=== PATIENT | female | born 1940 | race Caucasian/White ===

== ENCOUNTER 2017-06-10 16:11 | Inpatient (IN) | payer MEDICARE ==
[~2017-06-10] VITALS: Ht 154.9 cm; Wt 51.7 kg
--- NOTE | ~2017-06-10 | DS ---
[place], [place] DISCHARGE SUMMARY [id number] UN[facility] #: [id number] ROOM: 315 DOCTOR: TEDDY JOHNSON MD BIRTHDATE: [birth year] DOS: 06/16/2017 CHIEF COMPLAINT: "I need to get out of the hospital because I am getting today or next week." HISTORY OF PRESENT ILLNESS: This is a 76-year-old white female who is well known to me due to her stay at [facility] in [place], [place]. Apparently, the patient has a lengthy history of schizophrenia as well as Alzheimer dementia. She has been decompensating gradually over the last 4-6 weeks prior to this admission with an increase in her psychosis. The patient has been fixated on the belief that she is getting to a gentleman by the name of Mickey. She believes that Mickey works at a local [employer] and in fact calls there so much the library has threatened to press charges against the facility. Attempts to redirect have only led to her becoming increasingly verbally and physically aggressive towards the staff at the facility. She normally is very docile and compliant. She is becoming increasingly more agitated and been episodically noncompliant with her medicine. She is admitted now to rule out organic factors, to stabilize on medication with the ultimate plan to return to the least restrictive environment when stable. PAST MEDICAL HISTORY: Remarkable for osteoarthritis, asthma, chronic back pain, COPD, diabetes, hyperlipidemia, hypertension, migraines, osteopenia, rheumatoid arthritis, schizophrenia and a history of TIAs. SUMMARY OF HOSPITAL COURSE: The patient was admitted to the unit where she had her Seroquel discontinued in lieu of Invega 3 mg a day. Additionally, her Exelon capsules, which were taken 3 mg twice daily, was changed to Exelon patch 9.5 mg a day. She maintained on her Namenda 10 mg twice daily. Invega was ultimately increased from 3-6 mg a day with excellent results. Shortly after doing this, her psychotic symptoms abated. She no longer talked about getting . She no longer talked about Mickey. She was very fixated now on getting better and being able to return back to [place]. Exelon was gradually increased to its maximum dose of 13.3 mg a day. Staff did note as did I a mild upper extremity tremor and also some mild tremor of her upper lip. Vitamin E was utilized to see if it would help reverse any potential tardive and Cogentin 0.5 mg twice daily was utilized for the tremor. Both did seem to impact positively on these symptoms. She had improved readily enough to return back to [facility] while I will follow her. MENTAL STATUS AT DISCHARGE: The patient was alert and oriented to person, place, select others, but not totally to time. Mood was euthymic. Affect appropriate. There are no symptoms of sher or psychosis. Short term memory had gaps. FINAL DIAGNOSES: Schizoaffective disorder and Alzheimer dementia. PLAN: All of her prescriptions have been printed and will be sent with her. I will follow her upon her return to [facility]. [place], [place] DISCHARGE SUMMARY NAME: PARTH JASON UNIT #: [id number] ROOM: [facility] DOCTOR: TEDDY JOHNSON MD BIRTHDATE: [birth year] TEDDY JOHNSON MD CM:DISCHDAMIR [phone] TEDDY JOHNSON MD 06/16/17 1100 interface
--- NOTE | ~2017-06-10 | PR ---
[place], [place] PROGRESS NOTE NAME: PARTH JASON UNIT #: [id number] ROOM: 315 DOCTOR: TEDDY DEXTER MD BIRTHDATE: [birth year] DOS: 06/14/2017 CHIEF COMPLAINT: "Oh, Dr. Dexter, it's so nice to see you." SUMMARY OF THE VISIT: The patient was interviewed in her room, then later we walked her to the dining area to help her sit down. She engaged readily in conversation. She reports that she is feeling much better and is anxious to be able to go back to [facility]. She states that she is sleeping well, eating well and denies any side effects from the medication. She did not at any point in time ever bring up her getting this week or next week nor did she bring up being to Mickey. She does seem to be tolerating the current medication regimen well. MENTAL STATUS: She is alert and oriented, which has some time gaps. Mood does seem to be strongly trending towards euthymia. Affect is much more appropriate. There are no symptoms suggestive of sher or hypomania. There are no auditory or visual hallucinations noted. Short term memory has gaps, otherwise she is intact. PLAN: Maintain her current psychotropic regimen. Her urinalysis grew out E. coli. I will defer treatment of this to the hospitalist. We will engage her in individual and sher milieu activity, returning back to [place] when stable. TEDDY DEXTER MD CM:PNTRANS [id number] TEDDY DEXTER MD 06/14/17 1241 interface
--- NOTE | ~2017-06-10 | PR ---
[place], [place] PROGRESS NOTE NAME: PARTH JASON UNIT #: [id number] ROOM: 315 DOCTOR: TEDDY JOHNSON MD BIRTHDATE: [birth year] DOS: 06/15/2017 CHIEF COMPLAINT: "I am feeling better, thank you, do I get to go home soon?" SUMMARY OF THE VISIT: The patient was interviewed in the dining area where she was sitting eating breakfast. She engaged readily in conversation, reporting that she is sleeping well, eating well and is feeling better. She did not speak a single word about an upcoming wedding, nor did she talk about Mickey. She is much more pleasant and cooperative. I do note some mild movement of her upper lip. MENTAL STATUS: She is alert and oriented with some time gaps. Mood does seem to be more euthymic. Affect is more appropriate. There are no symptoms of hypomania or sher. There are no overt auditory or visual hallucinations. No delusions. No paranoia. Memory has mild gaps, but otherwise she is intact. PLAN: I will maintain her current psychotropic regimen. I will go ahead and add vitamin E 400 International Units to attempt to reverse the tardive dyskinesia. We will monitor, support and plan to discharge to the least restrictive environment. TEDDY JOHNSON MD CM:PNTRANS [id number] TEDDY JOHNSON MD 06/15/17 2342 interface
--- NOTE | ~2017-06-10 | PR ---
[place], [place] PROGRESS NOTE NAME: PARTH JASON UNIT #: [id number] ROOM: 315 DOCTOR: TEDDY JOHNSON MD BIRTHDATE: [birth year] DOS: 06/12/2017 CHIEF COMPLAINT: "Oh is at breakfast time, I am still tired." SUMMARY OF THE VISIT: The patient was interviewed as she rested in bed. She readily and engaged in conversation. She did appear somewhat sleepy. She did request that she could sleep some more before breakfast was coming because it was so early. Of note, the patient did not mention anything about the contacting and nurses report that this seemed to be somewhat less as the day went on yesterday. She remains pleasantly confused for the most part. MENTAL STATUS: She is alert and oriented to person, unclear place, certainly not time. Mood does seem to be fairly euthymic. Affect is within normal limits. Her speech rate and pattern is rather sparse and there is processing difficulty. She remains confused. PLAN: At this point, I will maximize out her Exelon patch at 13.3 mg a day, being augmented with Namenda. Maintain the current dose of the Invega at this point. Engage in individual and sher milieu activity, returning back to [facility] when stable. TEDDY JOHNSON MD CM:PNTRANS [phone] TEDDY JOHNSON MD 06/12/17 0857 interface
--- NOTE | ~2017-06-10 | PR ---
[place], [place] PROGRESS NOTE NAME: PARTH JASON UNIT #: [id number] ROOM: 315 DOCTOR: TEDDY DEXTER MD BIRTHDATE: [birth year] DOS: 06/13/2017 CHIEF COMPLAINT: "Oh Hi Dr. Dexter, when do I get to go home." SUMMARY OF THE VISIT: The patient was interviewed as she was resting quietly in bed. She engaged readily in conversation, looked me in the eye and had a relatively normal conversation. When I asked if there is anything at all that we can do to help her with, she did not bring up the need to call Abdelrahman or call anybody, instead she focused on here now and told me that she is feeling better. She is sleeping well, eating well and denies any medication side effects. She seemed much more goal directed in her thoughts. MENTAL STATUS: She is alert and oriented with some time gaps. Mood does seem to be trending towards euthymia and affect is much more appropriate. There are no symptoms of sher or hypomania. There are no overt auditory or visual hallucinations. No delusions were voiced. Short term memory continues to have gaps. PLAN: I will maintain her current psychotropic regimen. Of note, the patient does have a positive UTI which could have been some of the cause of her psychotic exacerbation. Otherwise, I do not think she is responding to the much more potent antipsychotic Invega than the lower potency Seroquel. We will monitor for risk, benefit and return then to [place] when stable. TEDDY DEXTER MD CM:PNTRANS [id number] TEDDY DEXTER MD 06/13/17 1239 interface
--- NOTE | ~2017-06-10 | WRIGHTHP ---
[place], [place] PATIENT HISTORY AND PHYSICAL EXAM NAME: PARTH JASON UNIT #: [id number] ROOM: 315 DOCTOR: TEDDY JOHNSON MD BIRTHDATE: [birth year] DOS: 06/11/2017 CHIEF COMPLAINT: "I need to get out of the hospital because I'm getting today and next week." HISTORY OF PRESENT ILLNESS: This is a 76-year-old white female who is well known to me due to her stay at [facility] in [place], [place]. The patient has a lengthy history of schizophrenia as well as Alzheimer's dementia. She has been decompensating over the last 4-6 weeks with an increase in her psychotic symptomatology. The patient has been fixated on the belief that she is marrying a gentleman by the name of Mickey, Mickey has no last name and Mickey apparently works in the library. She has been calling the library excessively to the point where the library staff has threatened legal action but based on her perseverative calls, attempts to redirect her in detention have only been met with her becoming verbally and physically aggressive with them, which is in sanchez contrast to her normal docile behavior. The patient is becoming increasingly physically combative irrespective of this delusion and has been very resistive to her care and has been episodically noncompliant at times with her medication. She is admitted now to rule out organic factors to attempt to stabilize on medication while engaging in individual and sher milieu activity. PAST MEDICAL HISTORY: Remarkable for osteoarthritis, asthma, chronic back pain, COPD, diabetes, a history of TIA, hyperlipidemia, hypertension, migraines, osteopenia, rheumatoid arthritis and schizophrenia. MENTAL STATUS: The patient is alert and oriented to person and place. She is certainly not oriented to time. Despite having worked with the patient for many, many years, she did not appear to recognize me this morning. She is very fixated on Mickey and very fixated on leaving the hospital. Mood does seem to be somewhat depressed, and she is very anxious and fretful. She is grossly delusional. She does have some processing difficulty and does not always answer questions appropriately. Short-term memory has gaps. PLAN: The patient did receive Invega 3 mg oral upon admission and tolerated it well. I will increase her Invega dose from 3-6 mg in the morning. I will also change her Exelon capsules from 3 mg twice daily to an Exelon patch 9.5 mg a day and plan to increase this to 13.3 mg a day to maximize potential benefit. We will continue to engage in individual and sher milieu activity with the ultimate plan to return to [facility] when psychiatrically stable. [place], [place] PATIENT HISTORY AND PHYSICAL EXAM NAME: PARTH JASON UNIT #: [id number] ROOM: [facility] DOCTOR: TEDDY JOHNSON MD BIRTHDATE: [birth year] TEDDY JOHNSON MD CM:HISPHYS:PATIENT HISTORY AND PHYSICAL EXAMINATION [phone] TEDDY JOHNSON MD 06/11/17 1053 interface
[~2017-06-10 16:11] MED LIST: ACETAMINOPHEN325 M2 PO; ANTI-DIARRHEAL2 MG PO; ASPIRIN LOW DOS81 MG PO; BACID CAPLET1 EACH PO; BUTALB-ACETAMI1 EACH PO; CRESTOR5 MG PO; LACTAID FAS9000 UNIT PO; MELATONIN10 M4 PO; METFORMIN500 MG PO; MIRTAZAPINE15 M2 PO; NAMENDA10 MG PO; NORVASC5 MG PO; PRINIVIL10 MG PO; PROAIR HFA8.5 GM INH; RIVASTIGMINE TAR3 M1 PO; SEROQUEL100 MG PO; TRAMADOL HCL50 MG PO; VITAMIN D50000 UNIT PO
[2017-06-10 16:25] VITALS: BP 100/60
--- NOTE | 2017-06-10 16:43 | NUR ---
PT WAS OBSERVED TO REMOVE THE TOILET HAT FROM TOILET, URINATE IN TOILET, REPLACE THE HAT THEN REPORT TO ME THAT SHE WAS UNABLE TO URINATE. PT REFUSES A CATH BE PLACED FOR URINE SPECIMEN. PROVIDER MADE AWARE, NO NEW ORDERS.
[2017-06-10 16:54] LABS: BASO % 0.3 % (0.0-1.0); HEMATOCRIT 42.4 % (37.0-47.0); HEMOGLOBIN 13.4 g/dl (12.0-16.0); LYMPH # 1.3 10*3/uL (1.3-4.4); LYMPH % 22.3 % (27.0-41.0); MEAN CELL VOLUME 100.2 fl (81.0-99.0); MEAN CORPUSCULAR HGB 31.7 pg (27.0-31.0); MEAN CORPUSCULAR HGB CONC 31.6 g/dl (33.0-37.0); MEAN PLATELET VOLUME 9.7 fl (9.6-12.3); MONO # 0.6 10*3/uL (0.1-1.0); MONO % 9.6 % (3.0-9.0); NEUT # 3.9 10*3/uL (2.3-7.9); NEUT % 67.3 % (47.0-73.0); PLATELET COUNT AUTOMATED 215 10*3/uL (130-400); RED BLOOD COUNT 4.23 10*6/uL (4.10-5.10); WHITE BLOOD COUNT 5.8 10*3/uL (4.8-10.8)
[2017-06-10 17:11] LABS: ALBUMIN 3.5 gm/dl (3.1-4.5); ALKALINE PHOSPHATASE 132 U/L (45-117); BUN 22 mg/dl (7-24); CHLORIDE 112 mmol/L (98-107); CREATININE 1.29 mg/dL (0.55-1.02); POTASSIUM 4.3 mmol/L (3.5-5.1); SGOT/AST 14 IU/L (3-35); SGPT/ALT 15 U/L (12-78); SODIUM 144 mmol/L (136-145); TOTAL PROTEIN 7.1 gm/dL (6.4-8.2)
[2017-06-10 17:16] LABS: ETHYL ALCOHOL < 3.0 mg/dl (<3)
[2017-06-10 17:21] LABS: ACETAMINOPHEN (TYLENOL) < 2.0 ug/ml (10-30)
--- NOTE | 2017-06-10 17:25 | NUR ---
PT HAS ASKED ME SEVERAL TIMES TO REACH HER DAUGHTER SHARON BY PHONE AT [phone] BUT EACH TIME, THERE IS NO ANSWER AND THERE IS NOANSWERING MACHINE. PT INFORMED OF THIS EACH TIME. PT IS CONFUSED TO LOCATION AND TIME OF DAY AND STATES "I'M NOT SUPOSSED TO BE ADMITTED HERE....PLUS, I DON'T HAVE ANY INSURANCE". ADMISSION TO [facility] PENDING.
[2017-06-10 18:00] VITALS: BP 134/85
--- NOTE | 2017-06-10 18:00 | NUR ---
ERENPARTH Kaye a 76 year old F admitted via wheel chair from the EMERGENCY ROOM as a emergency 72 hr. hold admission. Arrived on unit at 1800. ALLERGIES: SULFA, PCN. Vital signs are: 97.6-100-18 134/85. PT UNABLE AND UNWILLING TO SIGN ADMISSION PAPERWORK. Admitted under the services of Dr. ELIZABETH LOWRYTEDDY. A search was conducted and hazardous articles were removed. Client was oriented to the unit. RONDA ARRIAGA
--- NOTE | 2017-06-10 19:07 | NUR ---
CALLED HOSPITALIST CELL NUMBER 1, DR.HARSHAW PATINO, STATES TO PUT NEW CONSULT UNDER AND HE WOULD ACCEPT VERBAL CONSULT, UPDATED AND MADE AWARE OF CONSULT AT THIS TIME.
[2017-06-10 20:00] VITALS: BP 128/71
[2017-06-10 20:37] VITALS: BP 128/71
--- NOTE | 2017-06-10 21:15 | NUR ---
INTERACTIVE WHEN APPROACHED. VERY RESERVED AND NERVOUS. EMOTIONAL SUPPORT AND REASSURANCE PROVIDED. BROUGHT TO [facility] WHERE SHE FINALLY AGREED TO HAVE SNACK. MEDICATION COMPLIANT. GAIT STEADY
--- NOTE | 2017-06-11 05:24 | NUR ---
SLEPT INTERMITTENTLY BUT RESTED QUIET. MOVED SELF AROUND IN BED. P- DELUSIONAL I--TEACH REALITY VS DELUSION. ORIENT TO DATE AND PERSON,..TEACH COPING SKILLS P- NO DELUSIONS ABOUT FRIEND MARRYING HER, ORIENTED TO DATE AND TIME 24 HR chart check completed.
[2017-06-11 07:48] LABS: CHOLESTEROL 141 mg/dL (<200); TRIGLYCERIDES 139 mg/dl (<150); VLDL CHOLESTEROL 28 mg/dL (6-40)
[2017-06-11 07:49] LABS: HDL CHOLESTEROL 76 mg/dl (40-60); LDL CHOLESTEROL 37 mg/dL (9-159)
[2017-06-11 08:01] VITALS: BP 120/43
[2017-06-11 08:29] LABS: VITAMIN D, 25-HYDROXY 74.2 ng/mL (30-100)
--- NOTE | 2017-06-11 08:57 | NUR ---
MARINA, NURSE PLUMBING INSTRUCTOR FROM [facility] CALLED TO CHECK IN ON PT. UPDATE GIVEN. PER MARINA, PT USUALLY BEGINS AROUND 11AM REQUESTING TO CALL [phone] WHICH IS THE [employer] THE PT THINKS HER ALLEGED TASHA WORKS AT, ALLEGED TASHA IS . PT IS NO LONGER ALLOWED TO CALL THE [employer] D/T MAKING MULTIPLE CALLS AND ARGUING WITH STAFF THERE.
--- NOTE | 2017-06-11 09:52 | NUR ---
physical therpay PAtient evaluated on 3, full evaluation to follow. PAtient is 100 % (i) all mobility, d/c PT after evalaution. Thank you for this referral. Barbara Jean,PT
--- NOTE | 2017-06-11 13:26 | NUR ---
Exercise/Independent activity Patient did not attend group this morning,Patient refused.Encouraged patient to attend and educated her on benefits of attending groups and patient stated she did not feel well and refused again
--- NOTE | 2017-06-11 13:28 | NUR ---
case management called [facility] for authorization, per Bam, inpatient stay approved for 5 days, nr 06/14/17, reference number is [id number]
--- NOTE | 2017-06-11 13:39 | NUR ---
Occupational Therapy evaluation completed this date on 3 with full eval to follow. Precaution includes 3N prec, recent delusions, low complexity level 50331. Recommend no further OT at this time. Recommend d/c to shelter upon d/c. Thank you for this referral. Lora Howard OTR/L
--- NOTE | 2017-06-11 14:29 | NUR ---
PT ALERT TO PERSON ONLY. PT MED COMPLIANT WITHOUT DIFFICULTY. PT IS ISOLATIVE TO ROOM, REFUSING TO COME TO GROUP, ONLY COMING OUT FOR MEALS. NO HALLUCINATIONS NOTED. PT DELUSIONAL THINKING SHE IS MARRYING A MAN NAMED "PATRICIA", WHO IS . PT SPOKE WITH REGARDING THIS MATTER BUT VOICED NO DELUSIONS TO THIS NURSE. PT AMBULATORY THROUGHOUT UNIT, GAIT STEADY. PT CONTINENT OF BOWEL AND BLADDER. PLAN IS TO ENCOURAGE PT TO PARTICIPATE IN GROUP/ACTIVITIES, MONITOR BEAHVIORS ON Q15 M IN SAFETY CHECKS.
--- NOTE | 2017-06-11 15:35 | NUR ---
PT DELUSIONAL ASKING THIS NURSE TO CALL HER TASHA, WHO SHE IS MARRYING LATER THIS MONTH. ATTEMPTED TO PRESENT REALITY TO PT WITHOUT SUCCESS.
--- NOTE | 2017-06-11 15:37 | NUR ---
Decorating pumpkin this helped patients with thinking, concentration, solializing, and self esteem. Patient refused to join group. I engouraged patient and educated patient of the benefits of attend group. Patient refused say she was sick, she was waiting on a pill for her headache, and several other reasons she couldnt attend
--- NOTE | 2017-06-11 17:15 | NUR ---
PT REFUSED TO ATTEND GROUP.
--- NOTE | 2017-06-11 17:34 | NUR ---
TREATMENT TEAM WAS ANDREEA WITHTHE FOLLOWOING: DR. JOHNSON, RN.AT.SW. PT PAPITOULD BE ABLE TO RETURN TO [facility].
--- NOTE | 2017-06-11 18:36 | NUR ---
PT C/O HEADACHE 5/10, TYLENOL 650 MG PO PRN GIVEN.
--- NOTE | 2017-06-11 19:29 | NUR ---
PT REFUSING TO ALLOW NURSING STAFF TO PERFORM STRAIGHT CATH FOR URINE COLLECTION. EXPLAINED THE PURPOSE/IMPORTANCE OF COLLECTING SAMPLE. PT AGREED TO LET STAFF KNOW WHEN SHE NEEDED TO URINATE AND HOW TO USE THE HAT COLLECTION DEVICE. CONTINUE TO MONITOR FOR CHANGES IN BEHAVIOR.
[2017-06-11 20:06] VITALS: BP 120/74
[2017-06-11 21:00] LABS: BILIRUBIN 1+ (NEGATIVE); BLOOD NEGATIVE (NEGATIVE); CLARITY CLOUDY (CLEAR); COLOR YELLOW (YELLOW); GLUCOSE NEGATIVE (NEGATIVE); KETONE TRACE (NEGATIVE); LEUKO ESTERASE 2+ (NEGATIVE); NITRITE NEGATIVE (NEGATIVE); PH 5.5 (5.0-9.0); SPECIFIC GRAVITY 1.025 (1.005-1.030); UROBILINOGEN 0.2 E.U./dl (0.2-1.0)
[2017-06-11 21:07] LABS: BACTERIA 4+; WBC 41-50 wbc/hpf (0-5)
[2017-06-11 21:11] LABS: URINE AMPHETAMINES < 1000 (1000ng/ml); URINE BARBITURATES < 200 (200ng/ml); URINE BENZODIAZEPINES < 200 (200ng/ml); URINE CANNABINOIDS (THC) < 50 (50ng/ml); URINE COCAINE < 300 (300ng/ml); URINE METHADONE < 300 (300ng/ml); URINE OPIATES < 300 (300ng/ml); URINE PHENCYCLIDINE < 25 (25ng/ml)
--- NOTE | 2017-06-11 21:37 | NUR ---
UPDATED REGARDING PATIENT'S ABNORMAL URINE RESULTS. VERBALIZED UNDERSTANDING, NO NEW ORDERS RECEIVED AT THIS TIME.
--- NOTE | 2017-06-12 01:44 | NUR ---
24HR CHART CHECK COMPLETE
--- NOTE | 2017-06-12 06:14 | NUR ---
PT SLEPT >8 HRS, WITH ONE INTERRUPTION TO RECEIVE MEDICATION. PT PLEASANTLY CONFUSED. ORIENTED TO PERSON ONLY. PT DID NOT MENTION "PATRICIA" DURING THIS SHIFT. PT COMPLIANT WITH MEDICATIONS. ISOLATIVE TO ROOM UNLESS EATING. ENCOURAGED PT TO ATTEND GROUP SESSIONS AND TO VERBALIZE ANY FEELINGS OF EMOTIONAL DISTRESS TO STAFF. PT VERBALIZED UNDERSTANDING. REFER TO FLOWSHEET FOR ADDITIONAL INFO.
[2017-06-12 09:04] VITALS: BP 117/81
--- NOTE | 2017-06-12 13:37 | NUR ---
PATIENT IS ALERT AND ORIENTED TO SELF. ST/LT MEMORY DEFICITS NOTED. MOOD IS STABLE WITH FLAT AFFECT. NO HALLUCINATIONS NOTED THIS SHIFT. CALM AND COOPERATIVE WITH STAFF. APPEARS TO BE PROCESSING SLOWLY UPON INTERACTIONS WITH STAFF. REQUESTED TO CALL "PATRICIA" X1 THUS FAR, REALITY PRESENTED WITH NO EFFECT, PT DOES NOT VERBALIZE UNDERSTANDING, 1:1 COMPLETED WITH MINIMAL EFFECT. NAPS INTERMITTENTLY THROUGHOUGHT THE DAY. LIMITED INTERACTIONS WITH PEERS. ISOLATIVE TO ROOM DURING THE DAY. MEDICATION COMPLIANT WITHOUT DIFFICULTY. MOUTH TREMOR CONTINUES, NO DISTRESS NOTED. APPETITE GOOD FOR MEALS. PATIENT COMES TO DINNING ROOM TO EAT THEN GOES BACK TO ROOM DESPITE ENCOURAGEMENT TO STAY OUT IN [place] WITH NO EFFECT. TAKING FLUIDS WELL. RESPIRATIONS EASY AND EVEN. WILL CONTINUE TO ENCOURAGE PT TO ATTEND/PARTICIPATE IN GROUP/ACTIVITIES. WILL CONTINUE WITH Q15 MIN SAFETY CHECKS PER ORDERS.
--- NOTE | 2017-06-12 14:19 | NUR ---
Shift chart check completed.
[2017-06-12 20:16] VITALS: BP 141/76
--- NOTE | 2017-06-13 00:27 | NUR ---
24HR CHART CHECKS COMPLETE
--- NOTE | 2017-06-13 06:26 | NUR ---
PT ALERT OX3 ISOLATIVE TO ROOM, MED COMPLIANT WITH OUT DIFFICULTY. MUCH COAXING TO ATTEND HS GROUP AND SNACK. PLESANT AND COOPERATIVE WITH ALL ASPECTS OF CARE. SLEPT 8 HOURS WITH OUT ONLY INTURRUPTED BY PEERS OUT BURSTS
[2017-06-13 07:56] VITALS: BP 118/84
--- NOTE | 2017-06-13 11:01 | NUR ---
ON UNIT AND MADE AWARE OF URINE CULTURE RESULTS. NNO AT THIS TIME.
--- NOTE | 2017-06-13 17:19 | NUR ---
PARTH IS ALERT AND ORIENTED TO SELF AND PLACE. ST/LT MEMORY DEFICITS WITH PERIODS OF CONFUSION NOTED. MOOD IS STABLE AND EUTHYMIC. NO HALLUCINATIONS, DELUSIONS, OR BEHAVIORS NOTED. NO DELUSIONS ABOUT "PATRICIA" AND NO PHONE CALL REQUEST THIS SHIFT. ISOLATIVE TO ROOM MOST OF THE SHIFT DESPITE ENCOURAGEMENT FROM STAFF TO COME OUT TO [place] AND INTERACT WITH PEERS. CALM AND COOPERATIVE. SLOW TO PROCESS. MEDICATION COMPLIANT WITHOUT DIFFICULTY. APPETITE GOOD FOR MEALS, TAKING FLUIDS WELL. RESPIRATIONS EASY AND EVEN. NO ACUTE DISTRESS NOTED.
--- NOTE | 2017-06-13 17:34 | NUR ---
Shift chart check completed.
[2017-06-13 20:00] VITALS: BP 139/78
--- NOTE | 2017-06-13 23:42 | NUR ---
24 HR chart check completed.
--- NOTE | 2017-06-14 06:14 | NUR ---
PT PLESANT AND COOPERATIVE WITH MEDICATIONS AND ALL ASPECTS OF CARE. GREAT REPORT WITH ROOM MATE DURING HS SNACK AND GROUP. PERIODS OF CONFUSION NO AGRESSION OR AGITATION NOTED. NO REQUESTS TO CALL STARR GOMEZ. SLEPT 8 HOURS WITH OUT INTURRUPTION. CONTINUE PLAN OF CARE
[2017-06-14 08:06] VITALS: BP 134/78
--- NOTE | 2017-06-14 11:25 | NUR ---
Exercise/Trivia Exercise helps with circulation,mobility,and staying active,trivia helps with memory, concentration.thinking and socialization Patient refused to join group this morning, this staff member encouraged and encouraged patient to attend group. Patient still refuses. THis staff will attempt again this afternoon.
--- NOTE | 2017-06-14 14:16 | NUR ---
PATIENT IS ALERT AND VERBAL, ABLE TO MAKE NEEDS AND WANTS KNOWN TO STAFF. AFFECT IS BRIGHTER AND MORE APPROPRIATE. MOOD IS STABLE AND EUTHYMIC. CONTINUES TO ISOLATE TO ROOM DESPITE ENCOURAGEMENT FROM STAFF THROUGHOUT THE SHIFT. REPORTS SHE HAS BONDED WITH ROOM MATE AND IS SAD THAT ROOM MATHEW IS BEING DISCHARGED TODAY. EMOTIONAL SUPPORT PROVIDED WITH GOOD EFFECT. MEDICATION COMPLIANT WITHOUT DIFFICULTY. PROMPTING REQUIRED FOR HYGIENE. APPETITE GOOD AND TAKING FLUIDS WELL. LIMITED PEER INTERACTIONS WITH EXCEPTION OF ROOM MATE. SLOW TO PROCESS DURING ONE ON ONE INTERACTIONS WITH PATIENT. NO HALLUCINATIONS OR DELUSIONS OR BEHAVIORS NOTED. DENIES ANY SI/HI. RESPIRATIONS EASY AND EVEN. NO ACUTE DISTRESS NOTED. WILL CONTINUE WITH Q15 MIN CHECK PER OBSERVATION ORDERS. WILL CONTINUE TO ENCOURAGE PATIENT TO ATTEND AND PARTICIPATE IN GROUP THERAPY.
--- NOTE | 2017-06-14 14:29 | NUR ---
AT BEDSIDE TO ASSESS PATIENT THIS AFTERNOON AND MADE AWARE OF ECOLI GROWTH IN URINE CULTURE WITH NNO AT THIS TIME.
--- NOTE | 2017-06-14 15:14 | NUR ---
TREATMENT TEAM WAS HLED WITH THE FOLLWOING: DR. JOHNSON, YARD BRAKEMAN. RNs, SWs, AT, AND DIRECTOR. DR. JOHNSON FEELS PT CAN RETURN TO [facility]. PENDING DISCHARGE FOR 06/16.
[2017-06-14 19:55] VITALS: BP 140/83
--- NOTE | 2017-06-14 20:36 | NUR ---
MEDICATION COMPLIANT. REFUSED SNACK. CLIENT DID HER PM CARE INCLUDING ORAL CARE BEFORE MEDICATIONS. FORMED BM TONIGHT. DENIES ANY PROBLEMS. ORIENTED TO PERSON AND DATE. REORIENTED TO [place]. PLEASENT AND COOPERATIVE
--- NOTE | 2017-06-15 03:40 | NUR ---
RESTING WELL. MOVING SELF IN BED. 24 HR chart check completed.
[2017-06-15 08:00] VITALS: BP 130/87
--- NOTE | 2017-06-15 08:10 | NUR ---
Paulina Craft This patient again refuses to attend group. I sat with patient trying to encourage her to attend group. Told patient it was beneficial for her to start atending but patient stated she didnt feel well again and refused to go
--- NOTE | 2017-06-15 08:30 | NUR ---
BILATERAL UPPER TREMORS NOTED, NOTIFIED WITH NEW VO RECEIVED AND WITNESSED BY AARON
--- NOTE | 2017-06-15 13:31 | NUR ---
Readin/Reminiscing Patient again refused to join group. Patient is isolating herself to her room and states she again has a headache
--- NOTE | 2017-06-15 15:58 | NUR ---
NO ACUTE CHANGES SINCE YESTERDAY. MEDICATION COMPLIANT WITHOUT DIFFICULTY THIS SHIFT. WILL CONTINUE WITH Q15 MIN CHECKS. WILL CONTINUE TO ENCOURAGE PT TO BE LESS ISOLATIVE AND TO ATTEND/PARTICIPATE IN GROUP THERAPY.
--- NOTE | 2017-06-15 16:55 | NUR ---
HANS notified [facility] that Pt will be returning to facility on Saturday 06/16.
--- NOTE | 2017-06-15 16:56 | NUR ---
HANS notified Dtr Enmanuel that Pt will be returing to [facility] on 06/16
--- NOTE | 2017-06-15 16:57 | NUR ---
Pt unable to attend group due to sleeping in her room.
[2017-06-15 20:19] VITALS: BP 141/80
--- NOTE | 2017-06-15 22:39 | NUR ---
24 HR chart check completed.
--- NOTE | 2017-06-16 06:02 | NUR ---
PT HAS BEEN OBSERVED ON Q 15 MIN CHECKS & HAS SLEPT QUIETLY THROUGHOUT THE SHIFT PAST 2099.
--- NOTE | 2017-06-16 08:11 | NUR ---
Who Am I?/Positive Traits Again this patient refuses to join group. When asked why patient did not want to attend, Her answer was "because" x 4. Explained to patient how it was beneficial for her to attend groups, patient then stated she had a headache since director of early childhood and it wont go away. I will again try tomorrow
[2017-06-16 08:15] VITALS: BP 124/77
--- NOTE | 2017-06-16 08:30 | NUR ---
[facility] Team Team was held with the following: Dr. Dexter, LOADING UNIT TOOL SETTER, Medical Student, RN, SW, and AT. Pt being discharged today.
[2017-06-16] MEDS ORDERED: MIRTAZAPINE15 M2 PO (09:53)
[2017-06-16] MEDS ORDERED: VITAMIN E400 UNI3 PO (09:53)
[2017-06-16] MEDS ORDERED: MEMANTINE HCL10 MG PO (09:53)
[2017-06-16] MEDS ORDERED: PALIPERIDONE ER6 MG PO (09:53)
[2017-06-16] MEDS ORDERED: EXELON13.3 MG/21 T (09:53)
[2017-06-16] MEDS ORDERED: BENZTROPINE ME0.5 MG PO (09:53)
--- NOTE | 2017-06-16 10:15 | NUR ---
SW tried to schedule transporation and was on the phone for 45 minutes. Ambulance was denied.
--- NOTE | 2017-06-16 11:14 | NUR ---
Cristina is compliant with prescribed medications. On 1:1 interaction she is appropriate in her responses to staff. She states a desire to return home. She denies any complaints when questioned. Dr. Dexter in to see her and orders were received to discharge today. Resident answering for Dr. Hodges was notified of pending discharge plans. Glucometer testing completed this morning as nursing measure prior to administering glucophage and registered @ 141. She has been noted to spend her time lying in her room. Exhibiting quiet demeanor @ this time. No agitation noted thus far. Refer to [facility] flowsheet for more specific monitoring.
--- NOTE | 2017-06-16 12:00 | NUR ---
HANS was able to schedule [facility].
--- NOTE | 2017-06-16 12:23 | NUR ---
Nurse to nurse report provided to Jorge @ receiving facility @ this time.
--- NOTE | 2017-06-16 12:25 | NUR ---
SW called Dtr to verify insurance coverage. Dtr asked SW to call [facility].
--- NOTE | 2017-06-16 12:27 | NUR ---
SW spoke with Jorge balderrama she will fax insurance cards. Jorge stated that Pt has Medicare and Medicaid.
--- NOTE | 2017-06-16 12:29 | NUR ---
SW called [employer] again and spoke with [employer]. [employer] finally arranged for poultry picker with [facility] for 1pm.
--- NOTE | 2017-06-16 13:25 | NUR ---
Exercise/Games Patient again refused to attend group patient again stated she had a headache and couldnt attend.
--- NOTE | 2017-06-16 14:35 | NUR ---
Discharge instructions and medications reviewed with receiving facility. Also discussed discharge medications with Cristina and she reports that she will comply. Refer to disposition for more specific discharge information. Cristina did leave this facility, discharged @ approximately 1342. She is being accompanied by transportation staff. Alert and left unit via wheelchair. Prior to her departure all personal items were returned. Destination is [facility].
== END 2017-06-16 13:40 | disposition home or self-care (01) | DRG 57 ==
LOC: EDSTATUS 16:11 → ED 16:11 → 3N 17:48
PROVIDERS: Nurse Practitioner Family; ADMIT Psychiatry & Neurology Psychiatry
DX: G30.9 Alzheimer's disease, unspecified (principal); F02.81 Dementia in other diseases classified elsewhere, unspecified severity, with behavioral disturbance; E11.22 Type 2 diabetes mellitus with diabetic chronic kidney disease; E11.65 Type 2 diabetes mellitus with hyperglycemia; J44.9 Chronic obstructive pulmonary disease, unspecified; F25.9 Schizoaffective disorder, unspecified; I12.9 Hypertensive chronic kidney disease with stage 1 through stage 4 chronic kidney disease, or unspecified chronic kidney disease; F32.9 Major depressive disorder, single episode, unspecified; F41.9 Anxiety disorder, unspecified; F43.10 Post-traumatic stress disorder, unspecified; M85.80 Other specified disorders of bone density and structure, unspecified site; M19.90 Unspecified osteoarthritis, unspecified site; E87.8 Other disorders of electrolyte and fluid balance, not elsewhere classified; N18.3 Chronic kidney disease, stage 3 (moderate); G89.29 Other chronic pain; M54.9 Dorsalgia, unspecified; E78.5 Hyperlipidemia, unspecified; G43.909 Migraine, unspecified, not intractable, without status migrainosus; M06.9 Rheumatoid arthritis, unspecified; Z86.73 Personal history of transient ischemic attack (TIA), and cerebral infarction without residual deficits; Z91.19 Patient's noncompliance with other medical treatment and regimen; Z88.0 Allergy status to penicillin; Z88.2 Allergy status to sulfonamides; Z79.82 Long term (current) use of aspirin; Z79.84 Long term (current) use of oral hypoglycemic drugs; Z79.899 Other long term (current) drug therapy; Z90.49 Acquired absence of other specified parts of digestive tract